=== PATIENT | female | born 1995 | race Caucasian/White ===

== ENCOUNTER 2019-10-14 12:46 | Emergency (ER) | payer SELFPAY ==
[2019-10-14 12:57] VITALS: BP 146/83; PULSE 76; RESP 14; TEMP 36.1; O2SAT 100; BMI 30.7
[2019-10-14 13:20] LABS: Add Manual Diff / Slide Review NO; Basophils Absolute Auto 100 /uL (0-100); Eosinophils Absolute Auto 100 /uL (0-450); Eosinophils Percent Auto 1.2 % (2-4); Hematocrit 40.8 % (36-46); Hemoglobin 13.9 g/dL (12.0-16.0); Lymphocytes Absolute Auto 2300 /uL (1100-4500); Lymphocytes Percent Auto 33.7 % (25-40); Mean Corpuscular HGB Conc 34.1 % (30-36); Mean Corpuscular Hemoglobin 29.8 PG (26-34); Mean Corpuscular Volume 87.2 fL (80-100); Monocytes Absolute Auto 500 /uL (0-900); Monocytes Percent Auto 7.4 % (3-14); Neutrophils Absolute Auto 3800 /uL (1500-7000); Neutrophils Percent Auto 56.7 % (50-75); Platelet Count 201 X10^3/uL (150-400); Red Blood Cell Count 4.68 X10^6/uL (4.0-5.2); Red Cell Distribution Width 12.9 % (11.6-14.8); White Blood Cell Count 6.7 X10^3/uL (4.5-11.0)
[2019-10-14 13:28] LABS: INR 1.1 (0.9-1.3); Prothrombin Time 12.4 SECONDS (10.1-12.7)
[2019-10-14 13:30] LABS: PTT Partial Thromboplastin Tim 33 SECONDS (26.4-36.2)
[2019-10-14 13:41] LABS: Alanine Aminotransferase 22 IU/L (<35); Albumin 4.4 g/dL (3.5-5.0); Albumin Globulin Ratio 1.5 (1.0-2.8); Alkaline Phosphatase 52 U/L (38-126); Aspartate Aminotransferase 26 IU/L (14-36); BUN Creatinine Ratio 21.7 (6-22); Bilirubin Total 0.6 mg/dL (0.2-1.3); Blood Urea Nitrogen 15 mg/dL (7-17); Calcium 9.7 mg/dL (8.4-10.2); Carbon Dioxide 26 mmol/L (22-32); Chloride 104 mmol/L (98-107); Estimated Glomerular Filt Rate > 60.0 mL/min (>60); Glucose 96 mg/dL (70-100); HEMOLYSIS 19 (0-50); Lipase 88 U/L (23-300); Potassium 4.2 mmol/L (3.4-5.1); Sodium 137 mmol/L (137-145); Total Protein 7.4 g/dL (6.3-8.2)
--- NOTE | 2019-10-14 15:02 | DI.US.S_ITS ---
PROCEDURE: US PELVIC COMPLETE INDICATIONS: RLQ PAIN, PLEASE EVAL APPENDIX ALSO TECHNIQUE: Real-time scanning was performed of the pelvic organs, with image documentation. Additional endovaginal scanning was necessary due to incomplete visualization of the adnexal and endometrial structures by transabdominal scanning. COMPARISON: [facility], , US ABDOMEN LIMITED, 10/14/2019, 15:48. FINDINGS: Transabdominal scanning: A mild amount of free pelvic fluid is seen, which is considered to be within physiologic limits. Limited scanning through the kidneys shows no hydronephrosis. Endovaginal scanning: Uterus: Uterus is normal in size at 9.8 x 3.8 x 5.2 cm. The endometrium measures 7 mm in combined thickness. Ovaries: The right ovary measures 3.9 x 2.2 x 1.2 cm. The left ovary measures 3.6 x 2.5 x 3 cm. The ovaries have a normal sonographic appearance. No adnexal masses are seen. Note is made of prominent adnexal vessels on both sides. IMPRESSION: A cause of acute right lower quadrant abdominal pain cannot be seen. 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 Dictated by: Christian Garibay M.D. on 10/14/2019 at 15:15 Approved by: Christian Garibay M.D. on 10/14/2019 at 15:16
--- NOTE | 2019-10-14 15:15 | DI.US.S_ITS ---
PROCEDURE: US ABDOMEN LIMITED INDICATIONS: APPENDIX, RLQ PAIN TECHNIQUE: Real-time focused scanning was performed of the abdomen with attention to the appendix, with image documentation. COMPARISON: [facility], US, US PELVIC COMPLETE, 10/14/2019, 15:34. FINDINGS: Appendix visualization: Not seen Associated findings: The patient is tender overlying the right lower quadrant. No rebound tenderness is elicited by the case therapist. IMPRESSION: No appendix (either normal or abnormal) is identified on this study. Dictated by: Christian Garibay M.D. on 10/14/2019 at 15:16 Approved by: Christian Garibay M.D. on 10/14/2019 at 15:17
--- NOTE | 2019-10-14 15:22 | ED_ITS ---
HPI - Abdominal Pain <NIDHI Mclaughlin - Last Filed: 10/14/19 21:02> General Chief Complaint: Abdominal Pain Stated Complaint: abdominal pain middle/right side Time Seen by Provider: 10/14/19 14:50 Source: patient Mode of arrival: Ambulatory Limitations: no limitations History of Present Illness HPI narrative: 23yo female presents to the emergency department for right lower quadrant pain over the past 48 hours. She states it started two days ago after dinner. Patient states the pain has progressively worsened. She reports associated nausea. Patient states that she takes oral control, she reports she takes it consistently for 4 months and usually does not demonstrate during this time. However, every 4 months she takes the placebo pills. She started taking the placebo pills 3 weeks ago and had 1 day of brown vaginal bleeding. She stopped taking oral control pills for the past 3 weeks and have not had any vaginal bleeding. Patient denies any abnormal vaginal discharge or concerns for STDs as she has been with the same partner for the past year. Patient denies diarrhea, vomiting, headaches, fevers, chest pain, shortness of breath, or any other concerns. Related Data Allergies Allergy/AdvReac Type Severity Reaction Status Date / Time Penicillins Allergy Verified 10/14/19 12:57 Review of Systems <NIDHI Mclaughlin - Last Filed: 10/14/19 21:02> Review of Systems Narrative: REVIEW OF SYSTEMS: GENERAL: Denies fever, chills, malaise, or wt. loss. HENT: No head trauma, sore throat, or dysphagia. CARDIOVASCULAR: No chest pain, palpitations, or orthopnea. RESPIRATORY: No shortness of breath or cough. GASTROINTESTINAL: Complains of right lower quadrant abdominal pain with nausea, see HPI GENITOURINARY: No flank pain or urinary incontinence, or dysuria. No vaginal discharge or dyspareunia. Denies concerns for STIs MUSCULOSKELETAL: No pain, weakness, or trauma. INTEGUMENTARY: No rash, lesions, or pruritus. NEURO: No numbness, tingling. PSYCH: No behavior or mood changes. Patient History <NIDHI Mclaughlin - Last Filed: 10/14/19 21:02> Medical History No significant medical problems (Acute) Social History Smoking Status: Unknown if ever smoked Smoking Status: Unknown if ever smoked alcohol intake frequency: holidays/special occasions only Substance Use Type: does not use Exam <NIDHI Mclaughlin - Last Filed: 10/14/19 21:02> Initial Vital Signs Initial Vital Signs: Vital Signs Temperature 97.0 F L 10/14/19 12:57 Pulse Rate 76 10/14/19 12:57 Respiratory Rate 14 10/14/19 12:57 Blood Pressure 146/83 H 10/14/19 12:57 Pulse Oximetry 100 10/14/19 12:57 PHYSICAL EXAMINATION: GENERAL: Well groomed, alert, and cooperative. Answers questions promptly and appropriately. Vital signs noted. HENT: Normocephalic, atraumatic. Hearing intact. Oral mucosa is pink and moist. EYES: Conjunctiva pink, sclera white, no periorbital swelling. CARDIOVASCULAR: S1 and S2 sounds normal. Regular rate and rhythm, no murmurs, clicks, or bruits. No pedal edema. RESPIRATORY: Normal respiratory rate, trachea midline, airway patent. No stridor, nasal flaring or accessory muscle use. Lungs are clear in all lowry without wheeze, rhonchi, or crackles. GASTROINTESTINAL: Bowel sounds normoactive. Abdomen is soft and tenderness to right lower quadrant with palpation, no rebound tenderness.. No organomegaly, no palpable masses. Negative Cerna sign. GENITALURINARY: No flank tenderness. MUSCULOSKELETAL: Normal gait and coordination. Equal tone and mass bilaterally. EXTREMITIES: CMS intact, no pedal edema. SKIN: Warm, dry, soft, appropriate color for ethnicity. No lesions, rashes, or wounds to visualized areas. NEURO: Alert and Oriented X 3. Good coordination. No ataxia, or sensory deficits, or cognitive issues. PSYCH: Appropriate affect and mood. <Shalini Mueller MD - Last Filed: 10/15/19 12:37> Initial Vital Signs Initial Vital Signs: Vital Signs Temperature 97.0 F L 10/14/19 12:57 Pulse Rate 76 10/14/19 12:57 Respiratory Rate 14 10/14/19 12:57 Blood Pressure 146/83 H 10/14/19 12:57 Pulse Oximetry 100 10/14/19 12:57 Course <NIDHI Mclaughlin - Last Filed: 10/14/19 21:02> Course Course Narrative: Patient was offered pain medication initially, patient declined. Patient reports slightly improved abdominal pain throughout the course of ED without pain medication. Patient's laboratory results and imaging were explained extensively, patient agreed to plan of care. Orders Ordered: ED Orders 10/14/19 13:11 Complete Blood Count AUTO DIFF Stat Comprehensive Metabolic Panel Stat Lipase Stat Partial Thromboplastin Time Stat Prothrombin Time INR Stat 10/14/19 15:02 US pelvic complete Stat 10/14/19 15:15 US abdomen limited Stat Consultations Consultation #1: Patient staffed with Dr. Mueller, discussed test, test results, and plan of care. Vital Signs Vital signs: Vital Signs - 8 hr 10/14/19 17:27 Pulse Rate 95 H Respiratory Rate 28 H Blood Pressure 132/87 Pulse Oximetry 98 <Shalini Mueller MD - Last Filed: 10/15/19 12:37> Orders Ordered: ED Orders 10/14/19 13:11 Complete Blood Count AUTO DIFF Stat Comprehensive Metabolic Panel Stat Lipase Stat Partial Thromboplastin Time Stat Prothrombin Time INR Stat 10/14/19 15:02 US pelvic complete Stat 10/14/19 15:15 US abdomen limited Stat Vital Signs Vital signs: Vital Signs - 8 hr 10/14/19 17:27 Pulse Rate 95 H Respiratory Rate 28 H Blood Pressure 132/87 Pulse Oximetry 98 MDM - Abdominal Pain <NIDHI Mclaughlin - Last Filed: 10/14/19 21:02> Medical Records Attestation: I reviewed the patient's medical records. Lab Data Attestation: I reviewed the patient's lab results. Result diagrams: 10/14/19 13:11 10/14/19 13:11 Labs: Lab Results 10/14/19 10/14/19 10/14/19 Range/Units 13:11 13:11 13:11 WBC 6.7 (4.5-11.0) X10^3/uL RBC 4.68 (4.0-5.2) X10^6/uL Hgb 13.9 (12.0-16.0) g/dL Hct 40.8 (36-46) % MCV 87.2 (80-100) fL MCH 29.8 (26-34) PG MCHC 34.1 (30-36) % RDW 12.9 (11.6-14.8) % Plt Count 201 (150-400) X10^3/uL Neut % (Auto) 56.7 (50-75) % Lymph % (Auto) 33.7 (25-40) % Cascade % (Auto) 7.4 (3-14) % Eos % (Auto) 1.2 L (2-4) % Baso % (Auto) 1.0 (0-2) % Neut # (Auto) 3800 (1014-2786) /uL Lymph # (Auto) 2300 (5241-8693) /uL Cascade # (Auto) 500 (0-900) /uL Eos # (Auto) 100 (0-450) /uL Baso # (Auto) 100 (0-100) /uL PT 12.4 (10.1-12.7) SECONDS INR 1.1 (0.9-1.3) APTT 33 (26.4-36.2) SECONDS Sodium 137 (137-145) mmol/L Potassium 4.2 (3.4-5.1) mmol/L Chloride 104 (98-107) mmol/L Carbon Dioxide 26 (22-32) mmol/L BUN 15 (7-17) mg/dL Creatinine 0.69 (0.52-1.04) mg/dL Estimated GFR > 60.0 (>60) mL/min BUN/Creatinine Ratio 21.7 (6-22) Glucose 96 (70-100) mg/dL Calcium 9.7 (8.4-10.2) mg/dL Total Bilirubin 0.6 (0.2-1.3) mg/dL AST 26 (14-36) IU/L ALT 22 (<35) IU/L Alkaline Phosphatase 52 (38-126) U/L Total Protein 7.4 (6.3-8.2) g/dL Albumin 4.4 (3.5-5.0) g/dL Globulin 3.0 (1.7-4.1) g/dL Albumin/Globulin Ratio 1.5 (1.0-2.8) Lipase 88 (23-300) U/L Point of care testing: Point of Care Testing Test Results Negative Urine Dip Bedside Urine Glucose Negative Bedside Urine Bilirubin + 1 Bedside Urine Ketone + 15 Urine Specific [place] 1.030 Bedside Urine Occult Blood - Negative Bedside Urine pH 6.0 Bedside Urine Protein + 30 Bedside Urine Urobilinogen - Negative Bedside Urine Nitrite - Negative Bedside Urine Leukocytes - Negative Esterase Imaging Data US - abdomen: Radiologist's Impression: [address] [id number] Ultrasound Report Signed Patient: Marlen Sage CMR#: [id number] : 1995Acct:[id number] Age/Sex: 23 / FDate of Service: 10/14/19 Loc: ED Accession Number: [id number] Procedure: US abdomen limited Ordering Provider: Yohana Devi PROCEDURE: US ABDOMEN LIMITED INDICATIONS: APPENDIX, RLQ PAIN TECHNIQUE: Real-time focused scanning was performed of the abdomen with attention to the ap pendix, with image documentation. COMPARISON: [facility], US PELVIC COMPLETE, 10/14/2019, 15:34. FINDINGS: Appendix visualization: Not seen Associated findings: The patient is tender overlying the right lower quadrant. No rebound tenderness is elicited by the motor pool driver. IMPRESSION: No appendix (either normal or abnormal) is identified on this study. Dictated by: Christian Garibay M.D. on 10/14/2019 at 15:16 Approved by: Christian Garibay M.D. on 10/14/2019 at 15:17 US - AIRCRAFT RIVETER: Radiologist's Impression: [address] [address] Ultrasound Report Signed Patient: Marlen Sage CMR#: [id number] : 1995Acct:[id number] Age/Sex: 23 / FDate of Service: 10/14/19 Loc: ED Accession Number: [id number] Procedure: US pelvic complete Ordering Provider: Yohana Devi PROCEDURE: US PELVIC COMPLETE INDICATIONS: RLQ PAIN, PLEASE EVAL APPENDIX ALSO TECHNIQUE: Real-time scanning was performed of the pelvic organs, with image documentation. Additional endovaginal scanning was necessary due to incomplete visualization of the adnexal and endometrial structures by transabdominal scanning. COMPARISON: [facility], US ABDOMEN LIMITED, 10/14/2019, 15:48. FINDINGS: Transabdominal scanning: A mild amount of free pelvic fluid is seen, which is considered to be within physiologic limits. Limited scanning through the kidneys shows no hydronephrosis. Endovaginal scanning: Uterus: Uterus is normal in size at 9.8 x 3.8 x 5.2 cm. The endometrium measures 7 mm in combined thickness. Ovaries: The right ovary measures 3.9 x 2.2 x 1.2 cm. The left ovary measures 3.6 x 2.5 x 3 cm. The ovaries have a normal sonographic appearance. No adnexal masses are seen. Note is made of prominent adnexal vessels on both sides. IMPRESSION: A cause of acute right lower quadrant abdominal pain cannot be seen. 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 Dictated by: Christian Garibay M.D. on 10/14/2019 at 15:15 Approved by: Christian Garibay M.D. on 10/14/2019 at 15:16 MDM Narrative Medical decision making narrative: 23-year-old female presents to the emergency department for right lower quadrant pain. Unsure exact cause of pain, differential includes gastritis. Less likely appendicitis due to lack of fever, vomiting, normal white blood cell count, and no appendix swelling enlargement seen on ultrasound. Less likely ectopic, ovarian torsion, or ovarian cyst as patient's te st was negative, pelvic ultrasound without any concern. Less likely STDs/pelvic infection due to lack of vaginal discharge, decreased concern for STD as patient has been with partner for the past year. Patient is hemodynamically stable, non tachycardic, afebrile. Patient was given very strict return precautions for new or worsening symptoms. We discussed that discontinuing control so she can ?have a normal period ?Was not necessary increases her risk of becoming . Patient understood. Patient agreed to plan of care verbalized understanding. <Shalini Mueller MD - Last Filed: 10/15/19 12:37> Lab Data Labs: Lab Results 10/14/19 10/14/19 10/14/19 Range/Units 13:11 13:11 13:11 WBC 6.7 (4.5-11.0) X10^3/uL RBC 4.68 (4.0-5.2) X10^6/uL Hgb 13.9 (12.0-16.0) g/dL Hct 40.8 (36-46) % MCV 87.2 (80-100) fL MCH 29.8 (26-34) PG MCHC 34.1 (30-36) % RDW 12.9 (11.6-14.8) % Plt Count 201 (150-400) X10^3/uL Neut % (Auto) 56.7 (50-75) % Lymph % (Auto) 33.7 (25-40) % Cascade % (Auto) 7.4 (3-14) % Eos % (Auto) 1.2 L (2-4) % Baso % (Auto) 1.0 (0-2) % Neut # (Auto) 3800 (7060-4072) /uL Lymph # (Auto) 2300 (2265-4850) /uL Cascade # (Auto) 500 (0-900) /uL Eos # (Auto) 100 (0-450) /uL Baso # (Auto) 100 (0-100) /uL PT 12.4 (10.1-12.7) SECONDS INR 1.1 (0.9-1.3) APTT 33 (26.4-36.2) SECONDS Sodium 137 (137-145) mmol/L Potassium 4.2 (3.4-5.1) mmol/L Chloride 104 (98-107) mmol/L Carbon Dioxide 26 (22-32) mmol/L BUN 15 (7-17) mg/dL Creatinine 0.69 (0.52-1.04) mg/dL Estimated GFR > 60.0 (>60) mL/min BUN/Creatinine Ratio 21.7 (6-22) Glucose 96 (70-100) mg/dL Calcium 9.7 (8.4-10.2) mg/dL Total Bilirubin 0.6 (0.2-1.3) mg/dL AST 26 (14-36) IU/L ALT 22 (<35) IU/L Alkaline Phosphatase 52 (38-126) U/L Total Protein 7.4 (6.3-8.2) g/dL Albumin 4.4 (3.5-5.0) g/dL Globulin 3.0 (1.7-4.1) g/dL Albumin/Globulin Ratio 1.5 (1.0-2.8) Lipase 88 (23-300) U/L Point of care testing: Point of Care Testing Test Results Negative Urine Dip Bedside Urine Glucose Negative Bedside Urine Bilirubin + 1 Bedside Urine Ketone + 15 Urine Specific [place] 1.030 Bedside Urine Occult Blood - Negative Bedside Urine pH 6.0 Bedside Urine Protein + 30 Bedside Urine Urobilinogen - Negative Bedside Urine Nitrite - Negative Bedside Urine Leukocytes - Negative Esterase Discharge Plan Departure Patient Disposition: Home Clinical Impression: Abdominal pain Qualifiers: Abdominal location: right lower quadrant Qualified Code(s): R10.31 - Right lower quadrant pain Discharge Date/Time: 10/14/19 17:28 Instructions: DI for Abdominal Pain-Adult Activity Restrictions/Additional Instructions: Thank you for entrusting me with your care today. As discussed, your labs, urine, and ultrasound are non-remarkable this may mean something is resolving or not yet visible with our tests. I am unsure the exact cause of your pain. Please eat a bland diet for the next few days, get extra rest, and monitor your symptoms. Take ibuprofen as needed for pain. I suggest following up with your primary care provider in the next week for f urther evaluation if your symptoms continue. Return to the emergency department for any new or worsening symptoms such as severe pain, high fevers, uncontrollable vomiting, blood in your stools, or any other concerns. <Shalini Mueller MD - Last Filed: 10/15/19 12:37> Cosign ED Attending Cosignature Attestation: I was immediately available in the department for consultation throughout this patient's visit. I agree with documentation as above. Shalini Mueller MD
[2019-10-14 17:27] VITALS: BP 132/87; PULSE 95; RESP 28; O2SAT 98
== END 2019-10-14 17:28 | disposition home or self-care (01) ==
PROVIDERS: Emergency Medicine; Emergency Provider Nurse Practitioner
DX: R10.31 Right lower quadrant pain (principal); R11.0 Nausea
CPT/HCPCS: 36415; 76705; 76830; 76856; 80053; 81003; 81025; 83690; 85025; 85610; 85730; 99283; 99284

== ENCOUNTER → 2020-03-23 13:39 | Outpatient (CLI) | payer SELFPAY ==
--- NOTE | 2020-03-23 | DI.US.S_ITS ---
ULTRASOUND OF RIGHT BREAST: 03/23/2020 CLINICAL: Focal right breast pain. No prior exams were available for comparison. Real-time ultrasound of the right breast was performed. Maldonado scale images of the real-time examination were reviewed. No significant abnormalities were seen sonographically in the right breast. IMPRESSION: NEGATIVE There is no sonographic evidence of malignancy. There is no abnormality seen in the right breast to correspond with the area of clinical concern and pain, however, recommend clinical follow up for persistent or worsening symptoms, or development of any clinically suspicious findings. clinical followup is recommended. Given patient history of testing positive for BRCA gene, recommend consideration for screening breast MRI. Additionally, recommend initiating screening mammography 10 years earlier than age of diagnosis for any first degree relative with breast cancer or age 25 (which ever is earlier). Findings and recommendations were conveyed to the patient during today's evaluation. This exam was interpreted at Station ID: [id number]. Electronically Signed By: Giovanny Gastelum M.D. aty/:03/23/2020 15:20:17 letter sent: Clinical Evaluation Ultrasound BI-RADS: 1 Negative
--- NOTE | 2020-03-23 13:41 | DI.US.S_ITS ---
ULTRASOUND OF LEFT BREAST: 03/23/2020 CLINICAL: Focal left breast pain. No prior exams were available for comparison. Color flow and real-time ultrasound of the left breast were performed. Maldonado scale images of the real-time examination were reviewed. No significant abnormalities were seen sonographically in the left breast. IMPRESSION: NEGATIVE There is no sonographic evidence of malignancy. There is no abnormality seen in the left breast to correspond with the area of clinical concern and pain, however, recommend clinical follow up for persistent or worsening symptoms, or development of any clinically suspicious findings. Given patient history of testing positive for BRCA gene, recommend consideration for screening breast MRI. Additionally, recommend initiating screening mammography 10 years earlier than age of diagnosis for any first degree relative with breast cancer or age 25 (which ever is earlier). Findings and recommendations were conveyed to the patient during today's evaluation. This exam was interpreted at Station ID: [id number]. Electronically Signed By: Giovanny Gastelum M.D. aty/:03/23/2020 15:21:32 letter sent: Clinical Evaluation Ultrasound BI-RADS: 1 Negative
== END ==
PROVIDERS: Referring Provider Family Medicine; Visit Provider Family Medicine
DX: N64.4 Mastodynia (principal)
CPT/HCPCS: 76642